=== PATIENT | male | born 1990 | race Caucasian/White ===

== ENCOUNTER 2020-09-23 02:38 | Emergency (ER) | payer SELFPAY ==
[~2020-09-23] VITALS: Ht 162.6 cm; Wt 59.0 kg
[2020-09-23 02:40] VITALS: BP 125/53
--- NOTE | 2020-09-23 02:40 | NUR ---
ANGELA VEGA. TAKEN TO CHAIR C
--- NOTE | 2020-09-23 02:47 | NUR ---
PATIENT [facility] POLICE DEPT. PATIENT EXAMINED BY DR. GONCALVES. PATIENT MEDICALLY CLEARED AND RELEASED IN CUSTODY IN STABLE CONDITION. ORIGINAL PRE-BOOK FORM GIVEN TO OFFICER ELEUTERIO, #[id number].
== END 2020-09-23 02:47 ==
LOC: MED 02:38
DX: Z02.89 Encounter for other administrative examinations (principal)
CPT/HCPCS: 99283